=== PATIENT | male | born 1930 | race Caucasian/White ===

== ENCOUNTER 2018-06-25 13:35 | Inpatient (IN) | payer OTHER, MEDICAID ==
[~2018-06-25] VITALS: Ht 162.6 cm; Wt 55.3 kg
[2018-06-25 20:00] VITALS: BP_SYST 119
[2018-06-25] MEDS ORDERED: AMIN30LI26 GT (20:02)
[2018-06-25] MEDS ORDERED: MEMA10TA GT (20:02)
[2018-06-25] MEDS ORDERED: DONE10TA44 GT (20:02)
[2018-06-25] MEDS ORDERED: ACET325T53 GT (20:02)
[2018-06-25] MEDS ORDERED: ASPI-1155 GT (20:02)
[2018-06-25] MEDS ORDERED: FERR140T2 GT (20:02)
[2018-06-25] MEDS ORDERED: DOCU-144 GT (20:02)
[2018-06-25] MEDS ORDERED: CRAN450C GT (20:02)
[2018-06-25] MEDS ORDERED: MULT-300 GT (20:02)
[2018-06-25] MEDS ORDERED: MOM PO (20:05)
[2018-06-25] MEDS ORDERED: MILK OF MAGNESIA 30 ML UDC PO PRN (20:15)
[2018-06-25] MEDS ORDERED: ACETAMINOPHEN 325 MG TABLET GT PRN (20:15)
[2018-06-25 20:23] VITALS: BP_SYST 119
[2018-06-25 20:26] LABS: BILIRUBIN,URINE NEGATIVE (NEGATIVE); BLOOD, URINE 3+ (NEGATIVE); CLARITY/URINE HAZY (CLEAR); COLOR,URINE YELLOW (YELLOW); GLUCOSE,URINE NEGATIVE (NEGATIVE); KETONES,URINE NEGATIVE (NEGATIVE); LEUKOCYTE ESTERASE ,URINE 3+ (NEGATIVE); NITRITE, URINE POSITIVE (NEGATIVE); PROTEIN URINE TRACE (NEGATIVE)
[2018-06-25 20:30] LABS: BASOPHILS % (AUTO) 0.3 % (0.0-2.0); EOSINOPHILS # (AUTO) 0.4 K/uL (0.0-0.4); EOSINOPHILS % (AUTO) 4.5 % (0.0-4.0); HEMATOCRIT 37.3 % (36-54); HEMOGLOBIN 12.2 g/dL (14.0-18.0); LYMPHOCYTES % (AUTO) 12.4 % (20.5-51.5); MEAN CORPUSCULAR HEMOGLOBIN 29 pg (27-31); MEAN CORPUSCULAR HGB CONC 33 % (32-36); MEAN CORPUSCULAR VOLUME 89 fL (79.0-98.0); MONOCYTES # (AUTO) 0.5 K/uL (0.0-1.0); MONOCYTES % (AUTO) 6.2 % (1.7-9.3); NEUTROPHILS # (AUTO) 6.4 K/uL (1.8-7.7); NEUTROPHILS % (AUTO) 76.6 % (40.0-70.0); PLATELET COUNT (AUTO) 262 K/uL (130-430); RED BLOOD CELL COUNT(AUTO) 4.17 MIL/uL (4.2-6.2); RED CELL DISTRIBUTION WIDTH 13.4 % (9.0-15.0); WHITE BLOOD COUNT (AUTO) 8.3 K/uL (4.8-10.8)
[2018-06-25 20:36] LABS: BACTERIA,URINE MANY /HPF (None Seen); MUCUS,URINE None Seen /LPF (None Seen); WBC,URINE 80-100 /HPF (0-3)
[2018-06-25 20:38] LABS: ALANINE AMINOTRANSFERASE 23 U/L (12-78); ALBUMIN 2.8 g/dL (3.4-4.8); ANION GAP 4 (5-15); ASPARTATE AMINOTRANSFERASE 25 U/L (10-37); CALCIUM 8.5 mg/dL (8.4-11.0); CHLORIDE 105 mmol/L (98-107); CREATININE 0.88 mg/dL (0.55-1.30); GLUCOSE 79 mg/dL (70-99); POTASSIUM 3.7 mmol/L (3.5-5.1); SODIUM SERUM 136 mmol/L (136-145); TOTAL BILIRUBIN 0.7 mg/dL (0.0-1.0); UREA NITROGEN, BLOOD 36 mg/dL (8-21)
[2018-06-25] MEDS ORDERED: metroNIDAZOLE 500 mg/NS 200 ML IV ONE (21:48)
[2018-06-25] MEDS ORDERED: ENOXAPARIN SODIUM 30 MG/0.3 ML SYRINGE SUBCUT SCH (22:00)
[2018-06-25] MEDS: MEMANTINE HCL 5 MG TABLET GT SCH (22:07)
[2018-06-25] MEDS: KCL 20 mEq in D5/0.45NS 1000mL 1,000 ML IV SCH (22:07)
[2018-06-25] MEDS: DOCUSATE SODIUM 100 MG CAPSULE PO SCH (22:07)
[2018-06-25] MEDS: DONEPEZIL HCL 5 MG TABLET (ARICEPT) GT SCH (22:07)
[2018-06-25] MEDS: metroNIDAZOLE 500 mg/NS 100 ML IV SCH (22:10)
[2018-06-25] MEDS ORDERED: CEFEPIME 1 GM in D5W 50 ML IV SCH (22:30)
[2018-06-25] MEDS ORDERED: CEFEPIME 1 GM/VIAL (MAXIPIME) ONE (23:49)
[2018-06-26 00:06] VITALS: BP_SYST 119
[2018-06-26] MEDS: metroNIDAZOLE 500 mg/NS 100 ML IV SCH ×3 (06:10→21:17)
[2018-06-26] MEDS: ASPIRIN 81 MG TAB.CHEW GT SCH (08:15)
[2018-06-26] MEDS: MEMANTINE HCL 5 MG TABLET GT SCH ×2 (08:15→20:57)
[2018-06-26] MEDS: ONDANSETRON HCL 4 MG/2 ML VIAL IVP PRN ×3 (08:15→19:56)
[2018-06-26] MEDS: DOCUSATE SODIUM 100 MG CAPSULE PO SCH (08:15)
[2018-06-26] MEDS ORDERED: DOCUSATE SODIUM 100 MG/10 ML UDC PO SCH ×2 (08:33→09:00)
[2018-06-26 08:35] VITALS: BP_SYST 132
[2018-06-26] MEDS ORDERED: MILK OF MAGNESIA 30 ML UDC GT PRN (08:35)
[2018-06-26] MEDS: DOCUSATE SODIUM 100 MG/10 ML UDC GT SCH ×2 (08:43→20:58)
[2018-06-26] MEDS ORDERED: FERROUS SULFATE 325 MG TABLET.DR GT SCH (09:00)
[2018-06-26] MEDS ORDERED: FERROUS SULFATE 325 MG TABLET.DR PO SCH (09:00)
[2018-06-26] MEDS: KCL 20 mEq in D5/0.45NS 1000mL 1,000 ML IV SCH ×2 (09:20→13:36)
[2018-06-26 11:22] VITALS: BP_SYST 133
[2018-06-26] MEDS: CEFEPIME 1 GM in D5W 50 ML IV SCH (11:37)
[2018-06-26 15:27] VITALS: BP_SYST 135
[2018-06-26] MEDS ORDERED: METOCLOPRAMIDE HCL 10 MG/2 ML VIAL IVP PRN (17:30)
[2018-06-26] MEDS ORDERED: BISACODYL 10 MG/SUPPOSITORY RC ONE (17:30)
[2018-06-26 20:00] VITALS: BP_SYST 124
[2018-06-26] MEDS: DONEPEZIL HCL 5 MG TABLET (ARICEPT) GT SCH (20:57)
[2018-06-26] MEDS: PANTOPRAZOLE SODIUM 40 MG/VIAL (PROTONIX) IVP SCH (20:58)
[2018-06-26] MEDS: ENOXAPARIN SODIUM 30 MG/0.3 ML SYRINGE SUBCUT SCH (21:12)
[2018-06-27 00:07] VITALS: BP_SYST 111
[2018-06-27] MEDS: CEFEPIME 1 GM in D5W 50 ML IV SCH ×2 (00:12→12:48)
[2018-06-27 05:47] VITALS: BP_SYST 111
[2018-06-27] MEDS: metroNIDAZOLE 500 mg/NS 100 ML IV SCH ×3 (06:25→21:01)
[2018-06-27] MEDS: KCL 20 mEq in D5/0.45NS 1000mL 1,000 ML IV SCH (06:26)
[2018-06-27] MEDS ORDERED: METOCLOPRAMIDE HCL 10 MG/2 ML VIAL IVP ONE (07:15)
[2018-06-27 07:21] LABS: ALANINE AMINOTRANSFERASE 18 U/L (12-78); ALBUMIN 2.5 g/dL (3.4-4.8); ANION GAP 7 (5-15); ASPARTATE AMINOTRANSFERASE 21 U/L (10-37); CALCIUM 8.1 mg/dL (8.4-11.0); CHLORIDE 104 mmol/L (98-107); CREATININE 0.86 mg/dL (0.55-1.30); GLUCOSE 99 mg/dL (70-99); POTASSIUM 3.5 mmol/L (3.5-5.1); SODIUM SERUM 135 mmol/L (136-145); TOTAL BILIRUBIN 0.7 mg/dL (0.0-1.0); UREA NITROGEN, BLOOD 24 mg/dL (8-21)
[2018-06-27 07:27] LABS: BASOPHILS % (AUTO) 0.2 % (0.0-2.0); EOSINOPHILS # (AUTO) 0.1 K/uL (0.0-0.4); EOSINOPHILS % (AUTO) 1.7 % (0.0-4.0); HEMATOCRIT 32.4 % (36-54); HEMOGLOBIN 10.7 g/dL (14.0-18.0); LYMPHOCYTES # (AUTO) 0.6 K/uL (1.0-5.5); MEAN CORPUSCULAR HEMOGLOBIN 30 pg (27-31); MEAN CORPUSCULAR HGB CONC 33 % (32-36); MEAN CORPUSCULAR VOLUME 90 fL (79.0-98.0); MONOCYTES # (AUTO) 0.5 K/uL (0.0-1.0); MONOCYTES % (AUTO) 5.7 % (1.7-9.3); NEUTROPHILS # (AUTO) 7.6 K/uL (1.8-7.7); NEUTROPHILS % (AUTO) 85.4 % (40.0-70.0); PLATELET COUNT (AUTO) 231 K/uL (130-430); RED BLOOD CELL COUNT(AUTO) 3.62 MIL/uL (4.2-6.2); RED CELL DISTRIBUTION WIDTH 13.3 % (9.0-15.0); WHITE BLOOD COUNT (AUTO) 8.8 K/uL (4.8-10.8)
[2018-06-27] MEDS ORDERED: GASTROGRAFIN 120 ML ONE (07:28)
[2018-06-27] MEDS ORDERED: MINERAL OIL 133 ML ENEMA RC ONE (08:00)
[2018-06-27 08:07] VITALS: BP_SYST 113
[2018-06-27 08:11] LABS: LIPASE 39091 U/L (73-393)
[2018-06-27 08:16] LABS: AMYLASE 3447 U/L (0-100)
[2018-06-27] MEDS: MINERAL OIL 30 ML UDC PO SCH (08:25)
[2018-06-27] MEDS: DOCUSATE SODIUM 100 MG/10 ML UDC GT SCH ×2 (08:25→20:58)
[2018-06-27] MEDS: MEMANTINE HCL 5 MG TABLET GT SCH ×2 (08:25→20:58)
[2018-06-27] MEDS: ASPIRIN 81 MG TAB.CHEW GT SCH (08:25)
[2018-06-27] MEDS: PANTOPRAZOLE SODIUM 40 MG/VIAL (PROTONIX) IVP SCH ×2 (08:38→20:59)
[2018-06-27] MEDS: LR 1,000 ML IV SCH ×2 (10:12→20:03)
[2018-06-27 11:35] VITALS: BP_SYST 113
[2018-06-27] MEDS: METOCLOPRAMIDE HCL 10 MG/2 ML VIAL IVP SCH ×2 (14:12→21:58)
[2018-06-27] MEDS ORDERED: MORPHINE 4 MG/ML INJ. SYRINGE IVP PRN (15:30)
[2018-06-27 15:52] VITALS: BP_SYST 104
[2018-06-27 20:00] VITALS: BP_SYST 118
[2018-06-27] MEDS: DONEPEZIL HCL 5 MG TABLET (ARICEPT) GT SCH (20:58)
[2018-06-27] MEDS: ENOXAPARIN SODIUM 30 MG/0.3 ML SYRINGE SUBCUT SCH (21:02)
[2018-06-28] MEDS: CEFEPIME 1 GM in D5W 50 ML IV SCH ×2 (00:18→12:15)
[2018-06-28 01:15] VITALS: BP_SYST 102
[2018-06-28] MEDS: LR 1,000 ML IV SCH ×3 (05:05→22:16)
[2018-06-28] MEDS: metroNIDAZOLE 500 mg/NS 100 ML IV SCH ×3 (05:07→21:59)
[2018-06-28] MEDS: METOCLOPRAMIDE HCL 10 MG/2 ML VIAL IVP SCH ×3 (06:35→21:45)
[2018-06-28 06:48] LABS: BASOPHILS % (AUTO) 0.3 % (0.0-2.0); EOSINOPHILS # (AUTO) 0.2 K/uL (0.0-0.4); EOSINOPHILS % (AUTO) 2.5 % (0.0-4.0); HEMATOCRIT 33.5 % (36-54); LYMPHOCYTES # (AUTO) 0.9 K/uL (1.0-5.5); LYMPHOCYTES % (AUTO) 10.6 % (20.5-51.5); MEAN CORPUSCULAR HEMOGLOBIN 29 pg (27-31); MEAN CORPUSCULAR HGB CONC 33 % (32-36); MEAN CORPUSCULAR VOLUME 89 fL (79.0-98.0); MONOCYTES # (AUTO) 0.7 K/uL (0.0-1.0); NEUTROPHILS # (AUTO) 6.4 K/uL (1.8-7.7); NEUTROPHILS % (AUTO) 78.6 % (40.0-70.0); PLATELET COUNT (AUTO) 222 K/uL (130-430); RED BLOOD CELL COUNT(AUTO) 3.78 MIL/uL (4.2-6.2); RED CELL DISTRIBUTION WIDTH 13.3 % (9.0-15.0); WHITE BLOOD COUNT (AUTO) 8.2 K/uL (4.8-10.8)
[2018-06-28 07:03] LABS: ANION GAP 11 (5-15); CALCIUM 8.4 mg/dL (8.4-11.0); CHLORIDE 107 mmol/L (98-107); CREATININE 0.74 mg/dL (0.55-1.30); GLUCOSE 53 mg/dL (70-99); POTASSIUM 3.4 mmol/L (3.5-5.1); SODIUM SERUM 141 mmol/L (136-145); UREA NITROGEN, BLOOD 20 mg/dL (8-21)
[2018-06-28 07:12] LABS: ALANINE AMINOTRANSFERASE 14 U/L (12-78); ALBUMIN 2.3 g/dL (3.4-4.8); ASPARTATE AMINOTRANSFERASE 21 U/L (10-37); TOTAL BILIRUBIN 0.7 mg/dL (0.0-1.0)
[2018-06-28 07:58] LABS: AMYLASE 1498 U/L (0-100)
[2018-06-28 08:00] LABS: LIPASE 16085 U/L (73-393)
[2018-06-28 08:04] VITALS: BP_SYST 121
[2018-06-28] MEDS: DOCUSATE SODIUM 100 MG/10 ML UDC GT SCH ×2 (09:04→21:44)
[2018-06-28] MEDS: ASPIRIN 81 MG TAB.CHEW GT SCH (09:05)
[2018-06-28] MEDS: PANTOPRAZOLE SODIUM 40 MG/VIAL (PROTONIX) IVP SCH ×2 (09:05→21:45)
[2018-06-28] MEDS: MINERAL OIL 30 ML UDC PO SCH (09:05)
[2018-06-28] MEDS: MEMANTINE HCL 5 MG TABLET GT SCH ×2 (09:05→21:44)
[2018-06-28] MEDS: POLYETHYLENE GLYCOL 3350, 17 GM/ POWD.PACK PO SCH (09:06)
[2018-06-28] MEDS: MUPIROCIN NASAL 2% OINT. NS SCH ×2 (09:06→21:46)
[2018-06-28] MEDS ORDERED: DIATR MEGLU/DIATRIZ SOD 30 ML SOLUTION PO ONE (11:34)
[2018-06-28 13:03] VITALS: BP_SYST 117
[2018-06-28 14:28] VITALS: BP_SYST 118
[2018-06-28 20:00] VITALS: BP_SYST 114
[2018-06-28] MEDS: DONEPEZIL HCL 5 MG TABLET (ARICEPT) GT SCH (21:44)
[2018-06-28] MEDS: ENOXAPARIN SODIUM 30 MG/0.3 ML SYRINGE SUBCUT SCH (21:54)
[2018-06-29] MEDS: CEFEPIME 1 GM in D5W 50 ML IV SCH ×2 (00:08→12:03)
[2018-06-29 00:19] VITALS: BP_SYST 118
[2018-06-29] MEDS: LR 1,000 ML IV SCH ×2 (01:15→09:57)
[2018-06-29] MEDS: METOCLOPRAMIDE HCL 10 MG/2 ML VIAL IVP SCH ×3 (05:30→21:51)
[2018-06-29] MEDS: metroNIDAZOLE 500 mg/NS 100 ML IV SCH ×3 (05:30→21:51)
[2018-06-29 08:10] VITALS: BP_SYST 118
[2018-06-29] MEDS: PANTOPRAZOLE SODIUM 40 MG/VIAL (PROTONIX) IVP SCH ×2 (09:55→21:48)
[2018-06-29] MEDS: MUPIROCIN NASAL 2% OINT. NS SCH ×2 (09:58→22:04)
[2018-06-29] MEDS: MINERAL OIL 30 ML UDC PO SCH (10:07)
[2018-06-29] MEDS: DOCUSATE SODIUM 100 MG/10 ML UDC GT SCH ×2 (10:07→21:48)
[2018-06-29] MEDS: POLYETHYLENE GLYCOL 3350, 17 GM/ POWD.PACK PO SCH (10:08)
[2018-06-29] MEDS: ASPIRIN 81 MG TAB.CHEW GT SCH (10:08)
[2018-06-29] MEDS: MEMANTINE HCL 5 MG TABLET GT SCH ×2 (10:08→21:48)
[2018-06-29 11:34] VITALS: BP_SYST 139
[2018-06-29] MEDS ORDERED: VANCOMYCIN HCL 1 GM/NS PREMIX 250 ML IV ONE (14:15)
[2018-06-29] MEDS ORDERED: DIATR MEGLU/DIATRIZ SOD 30 ML SOLUTION PO ONE (14:58)
[2018-06-29 15:32] VITALS: BP_SYST 106
[2018-06-29 18:23] LABS: BASOPHILS % (AUTO) 0.4 % (0.0-2.0); EOSINOPHILS # (AUTO) 0.3 K/uL (0.0-0.4); HEMATOCRIT 33.1 % (36-54); HEMOGLOBIN 10.7 g/dL (14.0-18.0); LYMPHOCYTES # (AUTO) 0.8 K/uL (1.0-5.5); LYMPHOCYTES % (AUTO) 10.2 % (20.5-51.5); MEAN CORPUSCULAR HEMOGLOBIN 29 pg (27-31); MEAN CORPUSCULAR HGB CONC 33 % (32-36); MEAN CORPUSCULAR VOLUME 90 fL (79.0-98.0); MONOCYTES # (AUTO) 0.6 K/uL (0.0-1.0); MONOCYTES % (AUTO) 7.3 % (1.7-9.3); NEUTROPHILS % (AUTO) 78.1 % (40.0-70.0); PLATELET COUNT (AUTO) 236 K/uL (130-430); RED CELL DISTRIBUTION WIDTH 13.7 % (9.0-15.0); WHITE BLOOD COUNT (AUTO) 7.7 K/uL (4.8-10.8)
[2018-06-29 18:40] LABS: ALANINE AMINOTRANSFERASE 16 U/L (12-78); ALBUMIN 2.1 g/dL (3.4-4.8); AMYLASE 494 U/L (0-100); ANION GAP 11 (5-15); ASPARTATE AMINOTRANSFERASE 24 U/L (10-37); CALCIUM 7.9 mg/dL (8.4-11.0); CHLORIDE 104 mmol/L (98-107); CREATININE 0.69 mg/dL (0.55-1.30); GLUCOSE 50 mg/dL (70-99); LIPASE 2475 U/L (73-393); POTASSIUM 3.1 mmol/L (3.5-5.1); SODIUM SERUM 133 mmol/L (136-145); TOTAL BILIRUBIN 0.8 mg/dL (0.0-1.0); UREA NITROGEN, BLOOD 17 mg/dL (8-21)
[2018-06-29 19:45] VITALS: BP_SYST 131
[2018-06-29] MEDS ORDERED: POTASSIUM CHLORIDE 20 MEQ/PKT PACKET PO SCH (20:30)
[2018-06-29] MEDS ORDERED: KCL 40 mEq in 100 mL (PREMIX) 100 ML IV SCH (21:00)
[2018-06-29] MEDS: KCL 20 mEq in D5/0.45NS 1000mL 1,000 ML IV SCH (21:44)
[2018-06-29] MEDS: DONEPEZIL HCL 5 MG TABLET (ARICEPT) GT SCH (21:47)
[2018-06-29] MEDS: ENOXAPARIN SODIUM 30 MG/0.3 ML SYRINGE SUBCUT SCH (22:01)
[2018-06-29 23:34] VITALS: BP_SYST 102
[2018-06-30] MEDS: metroNIDAZOLE 500 mg/NS 100 ML IV SCH ×3 (05:22→21:39)
[2018-06-30] MEDS: METOCLOPRAMIDE HCL 10 MG/2 ML VIAL IVP SCH ×3 (05:22→21:38)
[2018-06-30] MEDS: POLYETHYLENE GLYCOL 3350, 17 GM/ POWD.PACK PO SCH (09:40)
[2018-06-30] MEDS: MINERAL OIL 30 ML UDC PO SCH (09:40)
[2018-06-30] MEDS: MEMANTINE HCL 5 MG TABLET GT SCH ×2 (09:40→21:36)
[2018-06-30] MEDS: DOCUSATE SODIUM 100 MG/10 ML UDC GT SCH ×2 (09:40→21:36)
[2018-06-30] MEDS: PANTOPRAZOLE SODIUM 40 MG/VIAL (PROTONIX) IVP SCH ×2 (09:40→21:36)
[2018-06-30] MEDS: ASPIRIN 81 MG TAB.CHEW GT SCH (09:41)
[2018-06-30] MEDS: MUPIROCIN NASAL 2% OINT. NS SCH ×2 (09:50→21:37)
[2018-06-30] MEDS: KCL 20 mEq in D5/0.45NS 1000mL 1,000 ML IV SCH (09:56)
[2018-06-30 11:29] VITALS: BP_SYST 129
[2018-06-30 15:27] VITALS: BP_SYST 122
[2018-06-30 19:00] VITALS: BP_SYST 109
[2018-06-30 20:00] VITALS: BP_SYST 109
[2018-06-30] MEDS: DONEPEZIL HCL 5 MG TABLET (ARICEPT) GT SCH (21:36)
[2018-06-30] MEDS: ENOXAPARIN SODIUM 30 MG/0.3 ML SYRINGE SUBCUT SCH (21:48)
[2018-07-01 00:55] VITALS: BP_SYST 150
[2018-07-01] MEDS: KCL 20 mEq in D5/0.45NS 1000mL 1,000 ML IV SCH ×2 (05:27)
[2018-07-01] MEDS: metroNIDAZOLE 500 mg/NS 100 ML IV SCH ×2 (05:27→15:04)
[2018-07-01] MEDS: METOCLOPRAMIDE HCL 10 MG/2 ML VIAL IVP SCH (05:28)
[2018-07-01 07:19] LABS: ANION GAP 8 (5-15); CALCIUM 7.5 mg/dL (8.4-11.0); CHLORIDE 104 mmol/L (98-107); CREATININE 0.76 mg/dL (0.55-1.30); GLUCOSE 182 mg/dL (70-99); SODIUM SERUM 136 mmol/L (136-145); UREA NITROGEN, BLOOD 14 mg/dL (8-21)
[2018-07-01 07:26] LABS: EOSINOPHILS # (AUTO) 0.5 K/uL (0.0-0.4); LYMPHOCYTES # (AUTO) 0.7 K/uL (1.0-5.5); MEAN CORPUSCULAR HEMOGLOBIN 30 pg (27-31); MEAN CORPUSCULAR VOLUME 89 fL (79.0-98.0)
[2018-07-01 07:27] LABS: AMYLASE 219 U/L (0-100)
[2018-07-01 07:34] VITALS: BP_SYST 115
[2018-07-01 07:54] LABS: LIPASE 3233 U/L (73-393)
[2018-07-01 08:13] LABS: HEMATOCRIT 29.9 % (36-54); MEAN CORPUSCULAR HGB CONC 34 % (32-36); NEUTROPHILS % (AUTO) 65.5 % (40.0-70.0); PLATELET COUNT (AUTO) 245 K/uL (130-430); RED BLOOD CELL COUNT(AUTO) 3.34 MIL/uL (4.2-6.2); RED CELL DISTRIBUTION WIDTH 14.3 % (9.0-15.0); WHITE BLOOD COUNT (AUTO) 4.9 K/uL (4.8-10.8)
[2018-07-01 08:14] LABS: BASOPHILS % (AUTO) 0.7 % (0.0-2.0); EOSINOPHILS % (AUTO) 9.9 % (0.0-4.0); LYMPHOCYTES % (AUTO) 13.5 % (20.5-51.5); MONOCYTES # (AUTO) 0.5 K/uL (0.0-1.0); MONOCYTES % (AUTO) 10.1 % (1.7-9.3); NEUTROPHILS # (AUTO) 3.2 K/uL (1.8-7.7)
[2018-07-01] MEDS: MUPIROCIN NASAL 2% OINT. NS SCH (09:00)
[2018-07-01] MEDS: MINERAL OIL 30 ML UDC PO SCH (10:33)
[2018-07-01] MEDS: DOCUSATE SODIUM 100 MG/10 ML UDC GT SCH (10:33)
[2018-07-01] MEDS: POLYETHYLENE GLYCOL 3350, 17 GM/ POWD.PACK PO SCH (10:33)
[2018-07-01] MEDS: PANTOPRAZOLE SODIUM 40 MG/VIAL (PROTONIX) IVP SCH (10:33)
[2018-07-01] MEDS: ASPIRIN 81 MG TAB.CHEW GT SCH (10:35)
[2018-07-01] MEDS: MEMANTINE HCL 5 MG TABLET GT SCH (10:35)
[2018-07-01 12:02] VITALS: BP_SYST 117
[2018-07-01] MEDS: POTASSIUM CHLORIDE 20 MEQ/PKT PACKET PO SCH ×2 (12:34→15:04)
[2018-07-01] MEDS ORDERED: METOCLOPRAMIDE HCL 10 MG/2 ML VIAL IVP PRN (16:00)
[2018-07-01 16:02] VITALS: BP_SYST 114
[2018-07-01 17:04] VITALS: BP_SYST 136
[2018-07-01] MEDS ORDERED: METOCLOPRAMIDE HCL 10 MG/2 ML VIAL IVP ONE (18:00)
[2018-07-01 20:19] VITALS: BP_SYST 132
[2018-07-01] MEDS ORDERED: POLYETHYLENE GLYCOL 3350, 17 GM/ POWD.PACK PO SCH (21:00)
[2018-07-01] MEDS ORDERED: METOCLOPRAMIDE HCL 10 MG/2 ML VIAL IVP SCH (22:00)
== END 2018-07-01 20:30 | DRG 388 ==
LOC: EEVIPCON 19:41 → SMU 19:41 → STU 19:49
PROVIDERS: ADMIT Family Medicine; ATTEND Family Medicine
DX: K56.7 Ileus, unspecified (principal); K85.90 Acute pancreatitis without necrosis or infection, unspecified; N39.0 Urinary tract infection, site not specified; R65.10 Systemic inflammatory response syndrome (SIRS) of non-infectious origin without acute organ dysfunction; E86.0 Dehydration; D64.9 Anemia, unspecified; F03.90 Unspecified dementia, unspecified severity, without behavioral disturbance, psychotic disturbance, mood disturbance, and anxiety; Z93.1 Gastrostomy status; K80.20 Calculus of gallbladder without cholecystitis without obstruction
CPT/HCPCS: 36415; 71045; 74018; 74250-TC; 76700-TC; 80048; 80053; 81000-TC; 82150-TC; 83605; 83690-TC; 85025; 87040-TC; 87081; 87086; 87186-TC; 93005; C9113; G0378; J0692; J1650; J2270; J2405; J2765; J3370; J3480; J3490; J7060; J7120; Q9963; Q9964

== ENCOUNTER 2018-07-28 13:24 | Inpatient (IN) | payer OTHER, MEDICAID ==
[~2018-07-28] VITALS: Ht 172.7 cm; Wt 54.0 kg
[~2018-07-28 13:24] MED LIST: ACET325T53 GT; AMIN30LI26 GT; ASPI-1155 GT; CRAN450C GT; DOCU-144 GT; DONE10TA44 GT; FERR140T2 GT; MEMA10TA GT; MOM PO; MULT-300 GT
[2018-07-28 13:30] VITALS: BP_SYST 117
[2018-07-28] MEDS ORDERED: DONE10TA44 GT (13:47)
[2018-07-28] MEDS ORDERED: ACET-2165 GT (13:47)
[2018-07-28] MEDS ORDERED: MEMA10TA GT (13:47)
[2018-07-28] MEDS ORDERED: CRAN450C GT (13:47)
[2018-07-28] MEDS ORDERED: METO-290 GT (13:47)
[2018-07-28] MEDS ORDERED: MOM GT (13:47)
[2018-07-28] MEDS ORDERED: DOCU-144 GT (13:47)
[2018-07-28] MEDS ORDERED: PEDI1TAB28 GT (13:47)
[2018-07-28] MEDS ORDERED: FER300L GT (13:47)
[2018-07-28] MEDS ORDERED: ASPI-1153 GT (13:47)
[2018-07-28 14:52] LABS: ANION GAP 8 (5-15); BASOPHILS # (AUTO) 0.3 K/uL (0.0-0.2); BASOPHILS % (AUTO) 0.5 % (0.0-2.0); CALCIUM 7.3 mg/dL (8.4-11.0); CHLORIDE 110 mmol/L (98-107); CREATININE 0.69 mg/dL (0.55-1.30); EOSINOPHILS # (AUTO) 0.3 K/uL (0.0-0.4); EOSINOPHILS % (AUTO) 4.8 % (0.0-4.0); GLUCOSE 73 mg/dL (70-99); HEMATOCRIT 31.1 % (36-54); HEMOGLOBIN 10.1 g/dL (14.0-18.0); LYMPHOCYTES # (AUTO) 0.6 K/uL (1.0-5.5); LYMPHOCYTES % (AUTO) 9.2 % (20.5-51.5); MEAN CORPUSCULAR HEMOGLOBIN 29 pg (27-31); MEAN CORPUSCULAR HGB CONC 33 % (32-36); MEAN CORPUSCULAR VOLUME 89 fL (79.0-98.0); MONOCYTES # (AUTO) 0.4 K/uL (0.0-1.0); MONOCYTES % (AUTO) 6.3 % (1.7-9.3); NEUTROPHILS # (AUTO) 5.2 K/uL (1.8-7.7); NEUTROPHILS % (AUTO) 79.2 % (40.0-70.0); PLATELET COUNT (AUTO) 274 K/uL (130-430); RED BLOOD CELL COUNT(AUTO) 3.48 MIL/uL (4.2-6.2); RED CELL DISTRIBUTION WIDTH 14.6 % (9.0-15.0); SODIUM SERUM 142 mmol/L (136-145); UREA NITROGEN, BLOOD 18 mg/dL (8-21); WHITE BLOOD COUNT (AUTO) 6.6 K/uL (4.8-10.8)
[2018-07-28 14:55] LABS: BILIRUBIN,URINE NEGATIVE (NEGATIVE); BLOOD, URINE 3+ (NEGATIVE); CLARITY/URINE HAZY (CLEAR); COLOR,URINE YELLOW (YELLOW); GLUCOSE,URINE NEGATIVE (NEGATIVE); KETONES,URINE NEGATIVE (NEGATIVE); LEUKOCYTE ESTERASE ,URINE NEGATIVE (NEGATIVE); NITRITE, URINE NEGATIVE (NEGATIVE); PROTEIN URINE 1+ (NEGATIVE)
[2018-07-28 14:56] LABS: POTASSIUM 2.6 mmol/L (3.5-5.1)
[2018-07-28] MEDS ORDERED: KCL 20 mEq in 100 mL (PREMIX) 100 ML IV ONE (15:00)
[2018-07-28 15:08] LABS: TOTAL BILIRUBIN 0.7 mg/dL (0.0-1.0)
[2018-07-28 15:10] LABS: ALANINE AMINOTRANSFERASE 25 U/L (12-78); ALBUMIN 2.1 g/dL (3.4-4.8); ASPARTATE AMINOTRANSFERASE 31 U/L (10-37); LIPASE 228 U/L (73-393)
[2018-07-28] MEDS ORDERED: NACL 0.9% 1,000 ML IV ONE (15:15)
[2018-07-28 15:23] LABS: INR 1.2 (0.80-1.20); PROTHROMBIN TIME 11.7 SECS (9.5-12.5)
[2018-07-28 15:27] LABS: RBC,URINE >100 /HPF (0-3)
[2018-07-28 15:28] LABS: BACTERIA,URINE FEW /HPF (None Seen)
[2018-07-28 15:29] LABS: HYALINE CASTS, URINE 0-10 /LPF (None Seen); MUCUS,URINE 2+ /LPF (None Seen)
[2018-07-28] MEDS ORDERED: ONDANSETRON HCL 4 MG/2 ML VIAL IVP PRN (15:30)
[2018-07-28 16:07] VITALS: BP_SYST 130
[2018-07-28 16:23] VITALS: BP_SYST 130
[2018-07-28] MEDS: KCL 20 mEq in D5/0.45NS 1000mL 1,000 ML IV SCH (18:03)
[2018-07-28 20:00] VITALS: BP_SYST 116
[2018-07-28] MEDS: metroNIDAZOLE 500 mg/NS 100 ML IV SCH (21:15)
[2018-07-28] MEDS: MEMANTINE HCL 5 MG TABLET GT SCH (21:16)
[2018-07-28] MEDS: DONEPEZIL HCL 5 MG TABLET (ARICEPT) GT SCH (21:16)
[2018-07-28] MEDS: PANTOPRAZOLE SODIUM 40 MG/VIAL (PROTONIX) IVP SCH (21:16)
[2018-07-28] MEDS: OLANZapine 2.5 MG TABLET GT SCH (21:16)
[2018-07-28] MEDS ORDERED: HALOPERIDOL LACTATE 5 MG/ML VIAL IM ONE (23:20)
[2018-07-29 00:23] VITALS: BP_SYST 114
[2018-07-29] MEDS: ACETAMINOPHEN 325 MG TABLET GT SCH ×2 (00:34→23:56)
[2018-07-29] MEDS: metroNIDAZOLE 500 mg/NS 100 ML IV SCH ×3 (05:46→22:58)
[2018-07-29] MEDS: KCL 20 mEq in D5/0.45NS 1000mL 1,000 ML IV SCH ×2 (05:47→22:58)
[2018-07-29 06:07] LABS: ANION GAP 9 (5-15); CALCIUM 7.7 mg/dL (8.4-11.0); CHLORIDE 108 mmol/L (98-107); CREATININE 0.88 mg/dL (0.55-1.30); GLUCOSE 92 mg/dL (70-99); SODIUM SERUM 140 mmol/L (136-145); UREA NITROGEN, BLOOD 12 mg/dL (8-21)
[2018-07-29 06:17] LABS: PHOSPHORUS 1.9 mg/dL (2.7-4.5)
[2018-07-29 06:49] LABS: POTASSIUM 2.9 mmol/L (3.5-5.1)
[2018-07-29 07:41] LABS: HEMATOCRIT 29.9 % (36-54); HEMOGLOBIN 9.6 g/dL (14.0-18.0); MEAN CORPUSCULAR HEMOGLOBIN 29 pg (27-31); MEAN CORPUSCULAR HGB CONC 32 % (32-36); MEAN CORPUSCULAR VOLUME 90 fL (79.0-98.0); NEUTROPHILS % (AUTO) 60.1 % (40.0-70.0); PLATELET COUNT (AUTO) 234 K/uL (130-430); RED BLOOD CELL COUNT(AUTO) 3.33 MIL/uL (4.2-6.2); RED CELL DISTRIBUTION WIDTH 14.7 % (9.0-15.0); WHITE BLOOD COUNT (AUTO) 3.4 K/uL (4.8-10.8)
[2018-07-29 07:42] LABS: BASOPHILS % (AUTO) 0.7 % (0.0-2.0); EOSINOPHILS # (AUTO) 0.3 K/uL (0.0-0.4); EOSINOPHILS % (AUTO) 8.6 % (0.0-4.0); LYMPHOCYTES # (AUTO) 0.7 K/uL (1.0-5.5); LYMPHOCYTES % (AUTO) 19.4 % (20.5-51.5); MONOCYTES # (AUTO) 0.4 K/uL (0.0-1.0); MONOCYTES % (AUTO) 11.2 % (1.7-9.3); NEUTROPHILS # (AUTO) 2.1 K/uL (1.8-7.7)
[2018-07-29 07:56] VITALS: BP_SYST 123
[2018-07-29] MEDS ORDERED: POTASSIUM CHLORIDE 40 MEQ in NS 250 ML IV ONE (09:15)
[2018-07-29] MEDS ORDERED: POTASSIUM CHLORIDE 20 MEQ/PKT PACKET GT ONE (09:15)
[2018-07-29] MEDS: PANTOPRAZOLE SODIUM 40 MG/VIAL (PROTONIX) IVP SCH ×2 (09:41→22:57)
[2018-07-29] MEDS: MEMANTINE HCL 5 MG TABLET GT SCH ×2 (09:41→22:57)
[2018-07-29] MEDS: DOCUSATE SODIUM 100 MG/10 ML UDC GT SCH (09:41)
[2018-07-29] MEDS: OLANZapine 2.5 MG TABLET GT SCH ×2 (09:41→22:57)
[2018-07-29] MEDS: ASPIRIN 81 MG TAB.CHEW GT SCH (09:41)
[2018-07-29] MEDS: ENOXAPARIN SODIUM 40 MG/0.4 ML SYRINGE SUBCUT SCH (09:42)
[2018-07-29 12:38] VITALS: BP_SYST 128
[2018-07-29 16:15] VITALS: BP_SYST 139
[2018-07-29 20:00] VITALS: BP_SYST 116
[2018-07-29] MEDS: NAPH,MB-DB/K PH,MBDB 250 MG TAB GT SCH ×2 (22:57→22:59)
[2018-07-29] MEDS: DONEPEZIL HCL 5 MG TABLET (ARICEPT) GT SCH (22:57)
[2018-07-29 23:56] VITALS: BP_SYST 126
[2018-07-30] MEDS: metroNIDAZOLE 500 mg/NS 100 ML IV SCH ×3 (05:31→22:27)
[2018-07-30 07:20] LABS: ANION GAP 6 (5-15); CALCIUM 7.6 mg/dL (8.4-11.0); CHLORIDE 108 mmol/L (98-107); CREATININE 0.74 mg/dL (0.55-1.30); GLUCOSE 97 mg/dL (70-99); POTASSIUM 4.1 mmol/L (3.5-5.1); SODIUM SERUM 135 mmol/L (136-145); UREA NITROGEN, BLOOD 9 mg/dL (8-21)
[2018-07-30 07:27] LABS: EOSINOPHILS % (AUTO) 7.7 % (0.0-4.0); HEMATOCRIT 29.5 % (36-54); HEMOGLOBIN 9.8 g/dL (14.0-18.0); LYMPHOCYTES % (AUTO) 18.2 % (20.5-51.5); MEAN CORPUSCULAR HEMOGLOBIN 30 pg (27-31); MEAN CORPUSCULAR HGB CONC 33 % (32-36); MEAN CORPUSCULAR VOLUME 89 fL (79.0-98.0); MONOCYTES % (AUTO) 12.3 % (1.7-9.3); NEUTROPHILS % (AUTO) 60.8 % (40.0-70.0); PLATELET COUNT (AUTO) 238 K/uL (130-430); RED CELL DISTRIBUTION WIDTH 14.6 % (9.0-15.0); WHITE BLOOD COUNT (AUTO) 3.8 K/uL (4.8-10.8)
[2018-07-30 07:28] LABS: BASOPHILS # (AUTO) 0.1 K/uL (0.0-0.2); EOSINOPHILS # (AUTO) 0.3 K/uL (0.0-0.4); LYMPHOCYTES # (AUTO) 0.7 K/uL (1.0-5.5); MONOCYTES # (AUTO) 0.5 K/uL (0.0-1.0); NEUTROPHILS # (AUTO) 2.3 K/uL (1.8-7.7)
[2018-07-30] MEDS: ASPIRIN 81 MG TAB.CHEW GT SCH (08:14)
[2018-07-30] MEDS: PANTOPRAZOLE SODIUM 40 MG/VIAL (PROTONIX) IVP SCH ×2 (08:14→20:01)
[2018-07-30] MEDS: MEMANTINE HCL 5 MG TABLET GT SCH ×2 (08:14→20:01)
[2018-07-30] MEDS: DOCUSATE SODIUM 100 MG/10 ML UDC GT SCH (08:14)
[2018-07-30] MEDS: OLANZapine 2.5 MG TABLET GT SCH (08:15)
[2018-07-30] MEDS: NAPH,MB-DB/K PH,MBDB 250 MG TAB GT SCH ×4 (08:15→20:01)
[2018-07-30] MEDS: ENOXAPARIN SODIUM 40 MG/0.4 ML SYRINGE SUBCUT SCH (08:16)
[2018-07-30] MEDS: KCL 20 mEq in D5/0.45NS 1000mL 1,000 ML IV SCH ×2 (08:20→22:27)
[2018-07-30] MEDS ORDERED: GASTROGRAFIN 120 ML ONE ×2 (09:41→13:19)
[2018-07-30 13:11] VITALS: BP_SYST 113
[2018-07-30] MEDS ORDERED: HALOPERIDOL 1 MG TABLET (HALDOL) PO ONE (16:00)
[2018-07-30] MEDS ORDERED: HALOPERIDOL LACTATE 5 MG/ML VIAL IM ONE (16:30)
[2018-07-30 16:50] VITALS: BP_SYST 121
[2018-07-30] MEDS: METOCLOPRAMIDE HCL 10 MG/2 ML VIAL IVP SCH ×2 (19:30→23:07)
[2018-07-30] MEDS ORDERED: OLANZapine 5 MG TABLET PO ONE (19:30)
[2018-07-30 20:00] VITALS: BP_SYST 100
[2018-07-30] MEDS: OLANZapine 5 MG TABLET GT SCH (20:01)
[2018-07-30] MEDS: DONEPEZIL HCL 5 MG TABLET (ARICEPT) GT SCH (20:07)
[2018-07-31 00:31] VITALS: BP_SYST 140
[2018-07-31] MEDS: METOCLOPRAMIDE HCL 10 MG/2 ML VIAL IVP SCH ×3 (05:00→17:53)
[2018-07-31] MEDS: metroNIDAZOLE 500 mg/NS 100 ML IV SCH ×3 (05:00→22:09)
[2018-07-31 08:00] VITALS: BP_SYST 125
[2018-07-31] MEDS ORDERED: GASTROGRAFIN 120 ML ONE (08:25)
[2018-07-31] MEDS: DOCUSATE SODIUM 100 MG/10 ML UDC GT SCH (10:33)
[2018-07-31] MEDS: PANTOPRAZOLE SODIUM 40 MG/VIAL (PROTONIX) IVP SCH ×2 (10:33→22:09)
[2018-07-31] MEDS: MEMANTINE HCL 5 MG TABLET GT SCH ×2 (10:34→22:10)
[2018-07-31] MEDS: OLANZapine 5 MG TABLET GT SCH ×2 (10:34→22:10)
[2018-07-31] MEDS: NAPH,MB-DB/K PH,MBDB 250 MG TAB GT SCH ×4 (10:34→22:10)
[2018-07-31] MEDS: ASPIRIN 81 MG TAB.CHEW GT SCH (10:34)
[2018-07-31] MEDS: KCL 20 mEq in D5/0.45NS 1000mL 1,000 ML IV SCH (10:35)
[2018-07-31 11:54] VITALS: BP_SYST 94
[2018-07-31 15:41] VITALS: BP_SYST 104
[2018-07-31 20:03] VITALS: BP_SYST 110
[2018-07-31] MEDS: DONEPEZIL HCL 5 MG TABLET (ARICEPT) GT SCH (22:10)
[2018-08-01] MEDS: METOCLOPRAMIDE HCL 10 MG/2 ML VIAL IVP SCH ×4 (00:22→17:10)
[2018-08-01] MEDS: KCL 20 mEq in D5/0.45NS 1000mL 1,000 ML IV SCH ×2 (00:23→14:34)
[2018-08-01 01:36] VITALS: BP_SYST 100
[2018-08-01] MEDS: metroNIDAZOLE 500 mg/NS 100 ML IV SCH ×3 (05:46→20:14)
[2018-08-01 08:08] VITALS: BP_SYST 107
[2018-08-01] MEDS: OLANZapine 5 MG TABLET GT SCH ×2 (08:53→20:13)
[2018-08-01] MEDS: ASPIRIN 81 MG TAB.CHEW GT SCH (08:53)
[2018-08-01] MEDS: DOCUSATE SODIUM 100 MG/10 ML UDC GT SCH ×3 (08:53→08:58)
[2018-08-01] MEDS: PANTOPRAZOLE SODIUM 40 MG/VIAL (PROTONIX) IVP SCH ×2 (08:53→20:13)
[2018-08-01] MEDS: MEMANTINE HCL 5 MG TABLET GT SCH ×2 (08:53→20:13)
[2018-08-01] MEDS: NAPH,MB-DB/K PH,MBDB 250 MG TAB GT SCH ×4 (08:53→20:13)
[2018-08-01 11:32] VITALS: BP_SYST 96
[2018-08-01 15:12] VITALS: BP_SYST 110
[2018-08-01 19:30] VITALS: BP_SYST 105
[2018-08-01] MEDS: DONEPEZIL HCL 5 MG TABLET (ARICEPT) GT SCH (20:13)
== END 2018-08-01 21:10 | DRG 444 ==
LOC: SED 13:24 → MERGE 15:25 → STU 15:25 → SMU 15:36
PROVIDERS: ADMIT Family Medicine; ATTEND Family Medicine
DX: K80.00 Calculus of gallbladder with acute cholecystitis without obstruction (principal); G93.41 Metabolic encephalopathy; F03.90 Unspecified dementia, unspecified severity, without behavioral disturbance, psychotic disturbance, mood disturbance, and anxiety; R31.0 Gross hematuria; R33.9 Retention of urine, unspecified; F32.9 Major depressive disorder, single episode, unspecified; K57.90 Diverticulosis of intestine, part unspecified, without perforation or abscess without bleeding; E87.6 Hypokalemia; M19.90 Unspecified osteoarthritis, unspecified site; I25.2 Old myocardial infarction; Z79.899 Other long term (current) drug therapy
CPT/HCPCS: 36415; 71045; 74240-TC; 76700-TC; 78226; 80048; 80053; 81000-TC; 83605; 83690-TC; 83735-TC; 84100-TC; 84484; 85025; 85610-TC; 85730-TC; 87040-TC; 87081; 87086; 93005; 96365; 96366; 99285; A9537; C9113; J1630; J1650; J1956; J2405; J2765; J3480; J3490; J7030; J7050; Q9963

== ENCOUNTER 2018-11-26 14:05 | Inpatient (IN) | payer OTHER, MEDICAID ==
[~2018-11-26] VITALS: Ht 172.7 cm; Wt 51.3 kg
[~2018-11-26 14:05] MED LIST changes: +ACET-2165 GT; +ASPI-1153 GT; +FER300L GT; +METO-290 GT; +MOM GT; +PEDI1TAB28 GT
[2018-11-26 17:03] VITALS: BP_SYST 96
[2018-11-26] MEDS ORDERED: ONDANSETRON HCL 4 MG/2 ML VIAL ONE (17:53)
--- NOTE | 2018-11-26 18:00 | NUR ---
NAUSEA Pt c/o nausea, pt given Zofran as ordered by MD. Pt given emesis basin. Oral care provided, noted pt with greenish sputum in his mouth from oral care. Noted pt with blackened areas on teeth and very dirty tongue.
--- NOTE | 2018-11-26 19:00 | NUR ---
CLOSING NOTE Pt resting quietly in bed with no s/s resp distress, no c/o pain or discomfort, no further c/o nausea. All precautions remain in place. Call light within reach.
[2018-11-26] MEDS ORDERED: LevALBUTEROL HCL 1.25 MG/0.5 ML *CONC.* VIAL.NEB (XOPENEX CONC.) INH PRN (19:30)
--- NOTE | 2018-11-26 19:40 | NUR ---
Dr. Delvalle at nursing station. Per MD resume GT feeding Fibersource at 40ml/hr.
[2018-11-26 20:05] VITALS: BP_SYST 108
--- NOTE | 2018-11-26 20:05 | NUR ---
Opening notes Pt asleep, easily arousable, oriented x 1, VSS, afebrile. No acute distress noted. IV saline lock R. FA 22G clear, patent, secured w/ gauze. GT placement checked, small greenish residual noted 5cc. GT dressing noted w/ greenish discharge. Cleansed w/ NS and applied new dressing. Photo of GT site taken. Abdominal binder on. Bed low, locked siderailsx 3 up, bed alarm on. Call light within reach. To monitor.
[2018-11-26 20:44] LABS: BASOPHILS % (AUTO) 0.2 % (0.0-2.0); EOSINOPHILS % (AUTO) 0.1 % (0.0-4.0); HEMATOCRIT 39.3 % (36-54); HEMOGLOBIN 12.8 g/dL (14.0-18.0); LYMPHOCYTES % (AUTO) 6.1 % (20.5-51.5); MEAN CORPUSCULAR HEMOGLOBIN 28 pg (27-31); MEAN CORPUSCULAR HGB CONC 33 % (32-36); MEAN CORPUSCULAR VOLUME 87 fL (79.0-98.0); MONOCYTES # (AUTO) 0.7 K/uL (0.0-1.0); MONOCYTES % (AUTO) 4.6 % (1.7-9.3); NEUTROPHILS # (AUTO) 14.4 K/uL (1.8-7.7); PLATELET COUNT (AUTO) 557 K/uL (130-430); RED BLOOD CELL COUNT(AUTO) 4.51 MIL/uL (4.2-6.2); RED CELL DISTRIBUTION WIDTH 15.3 % (9.0-15.0); WHITE BLOOD COUNT (AUTO) 16.2 K/uL (4.8-10.8)
[2018-11-26] MEDS ORDERED: KCL 20 mEq in D5/0.45NS 1000mL 1,000 ML IV ONE (21:23)
[2018-11-26] MEDS ORDERED: CEFAZOLIN 1 GM IVPB PREMIX 100 ML IV ONE (21:23)
[2018-11-26 21:34] LABS: ALANINE AMINOTRANSFERASE 29 U/L (12-78); ALBUMIN 2.5 g/dL (3.4-4.8); ANION GAP 13 (5-15); ASPARTATE AMINOTRANSFERASE 21 U/L (10-37); CALCIUM 9.4 mg/dL (8.4-11.0); CHLORIDE 105 mmol/L (98-107); CREATININE 1.53 mg/dL (0.55-1.30); GLUCOSE 126 mg/dL (70-99); POTASSIUM 3.2 mmol/L (3.5-5.1); SODIUM SERUM 143 mmol/L (136-145); TOTAL BILIRUBIN 0.8 mg/dL (0.0-1.0); UREA NITROGEN, BLOOD 81 mg/dL (8-21)
[2018-11-26] MEDS: KCL 20 mEq in D5/0.45NS 1000mL 1,000 ML IV SCH (21:53)
[2018-11-26] MEDS: DONEPEZIL HCL 5 MG TABLET (ARICEPT) GT SCH (21:55)
[2018-11-26] MEDS: FERROUS SULFATE 300 MG/5 ML UDC GT SCH (21:55)
[2018-11-26] MEDS: MEMANTINE HCL 5 MG TABLET GT SCH (21:55)
[2018-11-26] MEDS: DOCUSATE SODIUM 100 MG CAPSULE PO SCH (21:55)
[2018-11-26] MEDS: CEFAZOLIN 1 GM IVPB PREMIX 50 ML IV SCH (22:05)
--- NOTE | 2018-11-26 22:05 | NUR ---
IV antibiotic/Photo wound Ancef IVPB administered as ordered R. FA 22 clear and patent. Wound photo of GT site taken.
--- NOTE | 2018-11-26 22:15 | NUR ---
Chest Xray at bedside.
[2018-11-27 01:00] VITALS: BP_SYST 112
--- NOTE | 2018-11-27 01:30 | NUR ---
Rounds Pt asleep, no s/s distress noted. IVF infusing at ordered rate R.FA clear and patent. Call light within reach. Bed low, locked siderails up x3, bed alarm on. To monitor.
[2018-11-27] MEDS: LevALBUTEROL HCL 1.25 MG/0.5 ML *CONC.* VIAL.NEB (XOPENEX CONC.) INH SCH ×4 (02:13→19:26)
[2018-11-27 02:39] VITALS: BP_SYST 112; BP_SYST 149
[2018-11-27] MEDS: ONDANSETRON HCL 4 MG/2 ML VIAL IVP PRN ×4 (02:52→21:14)
--- NOTE | 2018-11-27 03:00 | NUR ---
Leny Pt awake, noted small greenish emesis in bin. Medicated with Zofran 4mg IVP R. FA. HOB maintained elevated. Will continue to monitor. Addendum: 11/27/18 at 0658 by Elsy Camejo RN Oral care provided as needed. Pt tolerated well.
--- NOTE | 2018-11-27 04:55 | NUR ---
Pericare Pt alert, awake, incontinent of urine. Pericare provided with DEPARTMENT STORE GENERAL MANAGER assist. Repositioned. Call light within reach. To monitor.
[2018-11-27] MEDS: CEFAZOLIN 1 GM IVPB PREMIX 50 ML IV SCH ×3 (05:50→21:13)
[2018-11-27] MEDS: KCL 20 mEq in D5/0.45NS 1000mL 1,000 ML IV SCH ×2 (05:51→12:46)
--- NOTE | 2018-11-27 06:45 | NUR ---
Closing notes Pt asleep, no s/s distress. IVF infusing at ordered rate R. FA 22G no s/s infiltration. GT clamped at this time, abdominal binder on. Pt repositioned. Bed low, locked, siderails x3 up, bed alarm on. Call light within reach. All needs met throughout the night. To endorse to AM nurse.
[2018-11-27 07:18] LABS: BASOPHILS % (AUTO) 0.1 % (0.0-2.0); EOSINOPHILS # (AUTO) 0.1 K/uL (0.0-0.4); EOSINOPHILS % (AUTO) 0.6 % (0.0-4.0); HEMATOCRIT 37.1 % (36-54); LYMPHOCYTES # (AUTO) 0.8 K/uL (1.0-5.5); LYMPHOCYTES % (AUTO) 5.6 % (20.5-51.5); MEAN CORPUSCULAR HEMOGLOBIN 28 pg (27-31); MEAN CORPUSCULAR HGB CONC 32 % (32-36); MEAN CORPUSCULAR VOLUME 87 fL (79.0-98.0); MONOCYTES # (AUTO) 0.6 K/uL (0.0-1.0); MONOCYTES % (AUTO) 4.3 % (1.7-9.3); NEUTROPHILS % (AUTO) 89.4 % (40.0-70.0); PLATELET COUNT (AUTO) 509 K/uL (130-430); RED BLOOD CELL COUNT(AUTO) 4.28 MIL/uL (4.2-6.2); RED CELL DISTRIBUTION WIDTH 15.2 % (9.0-15.0); WHITE BLOOD COUNT (AUTO) 14.6 K/uL (4.8-10.8)
[2018-11-27 07:25] VITALS: BP_SYST 109
--- NOTE | 2018-11-27 07:25 | NUR ---
INITIAL ROUNDS Received pt AAOx1, pt c/o nausea-pt given Zofran as ordered. HOB elevated and oral care provided. Pt requesting water-pt NPO. Pt on air mattress, will reposition Q2 hr with pillow support and heels off-loaded for skin care. G-tube site with green drainage seeping at site, IVF infusing well to RFA at ordered rate with no s/s infiltration to site. Side rails up x3, bed alarm on, room close to nursing station for safety. Call light within reach.
[2018-11-27 07:27] LABS: ANION GAP 9 (5-15); CHLORIDE 107 mmol/L (98-107); CREATININE 1.28 mg/dL (0.55-1.30); GLUCOSE 151 mg/dL (70-99); SODIUM SERUM 142 mmol/L (136-145); UREA NITROGEN, BLOOD 75 mg/dL (8-21)
[2018-11-27 07:34] LABS: POTASSIUM 2.8 mmol/L (3.5-5.1)
[2018-11-27] MEDS ORDERED: POTASSIUM CHLORIDE 40 MEQ in NS 250 ML IV ONE (08:15)
[2018-11-27] MEDS: MEMANTINE HCL 5 MG TABLET GT SCH ×2 (09:35→21:08)
[2018-11-27] MEDS: ASPIRIN 81 MG TABLET(ECOTRIN) GT SCH (09:35)
[2018-11-27] MEDS: FERROUS SULFATE 300 MG/5 ML UDC GT SCH ×2 (09:35→21:08)
[2018-11-27] MEDS: DOCUSATE SODIUM 100 MG CAPSULE PO SCH ×2 (09:35→21:08)
--- NOTE | 2018-11-27 09:55 | NUR ---
ROUNDS/TUBE FEEDING Pt resting quietly with no s/s resp distress, no s/s pain. Noted pt kept trying to grab at the g-tube site. Old abd binder soiled-Pt cleaned up. G-tube site with moderate amount of green discharge noted on drainage 4x4 dressing, old dressing removed, area cleansed with normal saline, moisture barrier cream applied to reddened area and new abd binder put on pt over g-tube site. Foam dressing applied to pt's tailbone area for skin precaution and placed onto air mattress with pillow support for skin care. HOB elevated for aspiration precautions. K-Samuel started as ordered. G-tube feeding of Jevity started at ordered rate. AM medications given via G-tube, G-tube flushed and port site cleaned. Oral care provided-noted pt had some greenish sputum in his mouth. All safety precautions remain in place.
--- NOTE | 2018-11-27 10:53 | NUR ---
Nutrition Update Bobby Scale 16 noted. Pt admitted for greenish discharge from GT. Diet: Jevity 1.2 at 40 ml/hr, Free Water Flush: 200 Q 6hrs via GT BMI: 17.2 kg/m2 RD to follow per nutrition care standards.
[2018-11-27 11:22] VITALS: BP_SYST 112
--- NOTE | 2018-11-27 14:05 | NUR ---
ROUNDS/ Pt resting quietly in bed with no s/s resp distress, no s/s pain or discomfort. G-tube dressing changed due to green drainage saturated previous dressing, abd cleansed with normal saline, moisture barrier cream applied to reddened area. Pt seen by DR. Sequeira. All precautions remain in place.
[2018-11-27] MEDS ORDERED: PANTOPRAZOLE SODIUM 40 MG/VIAL (PROTONIX) IVP ONE (14:15)
[2018-11-27] MEDS ORDERED: POTASSIUM CHLORIDE 20 MEQ TAB.PRT.SR GT ONE (14:15)
--- NOTE | 2018-11-27 14:26 | NUR ---
CONSULTATION PAGED/CALLED Reason for Consultation: [] GT SITE DISCHARGE Person Who was Notified: [] JEANIE Consulting Physician: [] DR REHMAN ORGANIZATIONAL DEVELOPMENT MANAGER FOR DR SOOD Knifeman Specialty: [] GI Ordering Physician: [] DR BECKFORD
--- NOTE | 2018-11-27 14:31 | NUR ---
Dietitian Recommendations * Consider increasing to Jevity 1.2 at 70 ml/hr, Free Water Flush: 100 ml Q6h via GT if/when medically appropriate Provides: 2016 kcal/day, 93 gm protein/day, and 1756 ml free water/day Meets: 96% of lower end of estimated caloric needs and 111% of lower end of estimated protein needs LP, RD Please refer to Nutrition Assessment for details. Addendum: 11/27/18 at [address] Amended: Links added.
[2018-11-27 15:37] VITALS: BP_SYST 97
--- NOTE | 2018-11-27 15:45 | NUR ---
ROUNDS/NAUSEA/ORAL CARE Pt moaning, indicated he might vomit-pt given emesis basin. Pt given Zofran as ordered. Oral care provided, noted small amount of thin green sputum in pt's mouth. HOB elevated, pt repositioned with pillow support and heels off-loaded. All safety precautions remain in place.
--- NOTE | 2018-11-27 18:52 | NUR ---
CLOSING NOTE Pt resting quietly in bed with no s/s resp distress, no c/o pain or discomfort, no further c/o nausea. Wound culture collected from the g-tube site. IVF infusing well to RFA at ordered rate with no s/s infiltration to site. Jevity 1.2 infusing well via g-tube at ordered rate. Oral care provided. Aspiration, skin and safety precautions remain in place.
--- NOTE | 2018-11-27 19:15 | NUR ---
Opening Notes Received patient in bed resting aaox1 norwegian speaking but able to verbalize needs in partial yi. Patient states no pain at this time. Informed patient to call for assistance with with any needs. SCD's in place. IV infusing D5 1/2 NS at 75ml/hr with no infiltration at the site. GT Feeding at 40ml/hr. Oriented the patient to the room and use of the call light. Safety precautions in place. Bed alarm is active. Will monitor on rounds.
[2018-11-27 20:00] VITALS: BP_SYST 102
--- NOTE | 2018-11-27 20:05 | NUR ---
Vitals taken, Oral care provided. Patient asking for water but is npo. GT flush 200ml. 5ml residual. Patient repositioned and pulled up in bed.
[2018-11-27] MEDS: DONEPEZIL HCL 5 MG TABLET (ARICEPT) GT SCH (21:08)
--- NOTE | 2018-11-27 22:40 | NUR ---
Patient tolerated GT feeding well. GT dressing changed and linen replaced. No complaints of pain or sob. will cont to monitor on rounds.
[2018-11-28 00:48] VITALS: BP_SYST 128
[2018-11-28] MEDS: LevALBUTEROL HCL 1.25 MG/0.5 ML *CONC.* VIAL.NEB (XOPENEX CONC.) INH SCH ×4 (01:06→19:35)
--- NOTE | 2018-11-28 01:06 | NUR ---
Patient GT flushed with 200ml h2o, 5ml residual. Repositioned towards the left. no complaints of pain. patient asking for water. educated to patient he is NPO. Oral care provided. Will cont to monitor on rounds.
[2018-11-28] MEDS: KCL 20 mEq in D5/0.45NS 1000mL 1,000 ML IV SCH ×2 (02:10→13:48)
[2018-11-28] MEDS: CEFAZOLIN 1 GM IVPB PREMIX 50 ML IV SCH ×3 (05:28→22:04)
--- NOTE | 2018-11-28 06:33 | NUR ---
Closing Notes Patient in bed resting. Tolerated IV antibiotics with no adverse reaction. IV fluids infusing with no infiltration at the iv site. GT FLushed and patient repositioned. Bed low and in locked position. No pain or respiratory distress. All needs have been met and will endorse care to incoming nurse.
--- NOTE | 2018-11-28 07:45 | NUR ---
opening note patient is resting in bed, getting a breathing treatment, assessment completed, patient is just stating "agua" and did not answer us when I asked for his name and , IV fluids running, g-tube intact with Jevity 1.2 running, no signs of distress, no other needs at this time, fall/safety precautions in place.
[2018-11-28 08:09] LABS: BASOPHILS % (AUTO) 0.2 % (0.0-2.0); EOSINOPHILS # (AUTO) 0.1 K/uL (0.0-0.4); EOSINOPHILS % (AUTO) 1.1 % (0.0-4.0); HEMATOCRIT 33.3 % (36-54); HEMOGLOBIN 10.6 g/dL (14.0-18.0); LYMPHOCYTES # (AUTO) 0.8 K/uL (1.0-5.5); LYMPHOCYTES % (AUTO) 5.9 % (20.5-51.5); MEAN CORPUSCULAR HEMOGLOBIN 28 pg (27-31); MEAN CORPUSCULAR HGB CONC 32 % (32-36); MEAN CORPUSCULAR VOLUME 88 fL (79.0-98.0); MONOCYTES # (AUTO) 0.6 K/uL (0.0-1.0); MONOCYTES % (AUTO) 4.7 % (1.7-9.3); NEUTROPHILS # (AUTO) 11.2 K/uL (1.8-7.7); NEUTROPHILS % (AUTO) 88.1 % (40.0-70.0); PLATELET COUNT (AUTO) 442 K/uL (130-430); RED BLOOD CELL COUNT(AUTO) 3.81 MIL/uL (4.2-6.2); RED CELL DISTRIBUTION WIDTH 15.6 % (9.0-15.0); WHITE BLOOD COUNT (AUTO) 12.7 K/uL (4.8-10.8)
[2018-11-28 08:18] VITALS: BP_SYST 113
[2018-11-28 08:26] LABS: ANION GAP 5 (5-15); CALCIUM 8.7 mg/dL (8.4-11.0); CHLORIDE 113 mmol/L (98-107); CREATININE 0.93 mg/dL (0.55-1.30); GLUCOSE 138 mg/dL (70-99); SODIUM SERUM 143 mmol/L (136-145); UREA NITROGEN, BLOOD 40 mg/dL (8-21)
[2018-11-28] MEDS: MEMANTINE HCL 5 MG TABLET GT SCH ×2 (08:57→20:21)
[2018-11-28] MEDS: ASPIRIN 81 MG TABLET(ECOTRIN) GT SCH (08:57)
[2018-11-28] MEDS: PANTOPRAZOLE SODIUM 40 MG/VIAL (PROTONIX) IVP SCH (08:57)
[2018-11-28] MEDS: DOCUSATE SODIUM 100 MG CAPSULE PO SCH ×2 (08:57→20:21)
[2018-11-28] MEDS: FERROUS SULFATE 300 MG/5 ML UDC GT SCH ×2 (08:57→20:21)
[2018-11-28] MEDS ORDERED: GASTROGRAFIN 120 ML ONE (09:26)
--- NOTE | 2018-11-28 10:30 | NUR ---
rounds patient resting in bed, IV fluids running with no signs of infiltration, patient grunting and asking for water, I educated him that he cannot drink water, no other needs at this time, fall/safety precautions in place.
[2018-11-28 11:25] VITALS: BP_SYST 109
--- NOTE | 2018-11-28 12:15 | NUR ---
new Jevity 1.2 bottle hung new tube feeding bottle hung, patient tolerated well, patient said he was cold and I gave him a warm blanket, no other needs at this time, fall/safety precautions in place.
--- NOTE | 2018-11-28 14:00 | NUR ---
rounds patient is resting in bed, about to get breathing treatment, scheduled ancef was hung, no other needs at this time, fall/safety precautions in place, IV fluids running, tube feeding running and tolerating well.
[2018-11-28 15:36] VITALS: BP_SYST 92
--- NOTE | 2018-11-28 18:47 | NUR ---
closing note patient resting in bed, IV fluids running with no signs of infiltration, patient grunting and asking for water, I educated him that he cannot drink water, tube feeding running and patient is tolerating well, no other needs at this time, fall/safety precautions in place, will endorse report to [facility] shift nurse to continue with care, 200cc of free water Q6, awaiting x-ray for GI consult to read over for tomorrow to determine plan of care for patient.
--- NOTE | 2018-11-28 19:15 | NUR ---
OPENING NOTE Received report from Marychuy. Patient resting in bed with eyes closed. Breathing unlabored and even on room air. No signs of distress, no needs at this time. Fall, safety, aspiration precautions in place. Bed in lowest position, brake on, alarm on, call light within reach. IVF infusing as ordered. SCDs on. Pillow support in place. G-tube feeding infusing as ordered. Will continue to monitor.
[2018-11-28] MEDS: DONEPEZIL HCL 5 MG TABLET (ARICEPT) GT SCH (20:21)
[2018-11-28 20:34] VITALS: BP_SYST 98
--- NOTE | 2018-11-28 22:06 | NUR ---
IV abx hung
[2018-11-28 23:24] VITALS: BP_SYST 112
--- NOTE | 2018-11-29 00:16 | NUR ---
Patient resting in bed with eyes closed. Breathing unlabored and even on room air. No signs of distress, no needs at this time. Fall, safety, aspiration precautions in place. Bed in lowest position, brake on, alarm on, call light within reach. IVF infusing as ordered. SCDs on. Pillow support in place. G-tube feeding infusing as ordered. Will continue to monitor.
[2018-11-29] MEDS: LevALBUTEROL HCL 1.25 MG/0.5 ML *CONC.* VIAL.NEB (XOPENEX CONC.) INH SCH ×4 (00:35→19:45)
--- NOTE | 2018-11-29 04:08 | NUR ---
SUPERVISOR ALUMINUM BOAT ASSEMBLY giving patient a bed bath and changing patient.
[2018-11-29] MEDS: KCL 20 mEq in D5/0.45NS 1000mL 1,000 ML IV SCH ×2 (04:34→18:33)
--- NOTE | 2018-11-29 04:35 | NUR ---
New IVF hung
[2018-11-29] MEDS: CEFAZOLIN 1 GM IVPB PREMIX 50 ML IV SCH ×3 (05:59→20:43)
--- NOTE | 2018-11-29 06:01 | NUR ---
IV abx hung
--- NOTE | 2018-11-29 06:44 | NUR ---
CLOSING NOTE Patient resting in bed with eyes closed. Breathing unlabored and even on room air. No signs of distress, no needs at this time. Fall, safety, aspiration precautions in place. Bed in lowest position, brake on, alarm on, call light within reach. IVF infusing as ordered. SCDs on. Pillow support in place. G-tube feeding infusing as ordered. Will endorse cares to day shift nurse.
[2018-11-29 07:21] LABS: BASOPHILS % (AUTO) 0.8 % (0.0-2.0); EOSINOPHILS # (AUTO) 0.4 K/uL (0.0-0.4); HEMATOCRIT 33.9 % (36-54); HEMOGLOBIN 10.8 g/dL (14.0-18.0); LYMPHOCYTES # (AUTO) 0.6 K/uL (1.0-5.5); LYMPHOCYTES % (AUTO) 10.3 % (20.5-51.5); MEAN CORPUSCULAR HEMOGLOBIN 28 pg (27-31); MEAN CORPUSCULAR HGB CONC 32 % (32-36); MEAN CORPUSCULAR VOLUME 89 fL (79.0-98.0); MONOCYTES # (AUTO) 0.4 K/uL (0.0-1.0); MONOCYTES % (AUTO) 6.9 % (1.7-9.3); NEUTROPHILS # (AUTO) 4.8 K/uL (1.8-7.7); PLATELET COUNT (AUTO) 417 K/uL (130-430); RED BLOOD CELL COUNT(AUTO) 3.83 MIL/uL (4.2-6.2); RED CELL DISTRIBUTION WIDTH 15.4 % (9.0-15.0); WHITE BLOOD COUNT (AUTO) 6.3 K/uL (4.8-10.8)
[2018-11-29 07:39] LABS: ALANINE AMINOTRANSFERASE 134 U/L (12-78); ALBUMIN 1.8 g/dL (3.4-4.8); ANION GAP 7 (5-15); ASPARTATE AMINOTRANSFERASE 216 U/L (10-37); CALCIUM 8.5 mg/dL (8.4-11.0); CHLORIDE 112 mmol/L (98-107); CREATININE 0.81 mg/dL (0.55-1.30); GLUCOSE 113 mg/dL (70-99); LIPASE 158 U/L (73-393); POTASSIUM 4.7 mmol/L (3.5-5.1); SODIUM SERUM 147 mmol/L (136-145); TOTAL BILIRUBIN 0.3 mg/dL (0.0-1.0); UREA NITROGEN, BLOOD 30 mg/dL (8-21)
--- NOTE | 2018-11-29 07:55 | NUR ---
INITIAL ROUNDS Received pt AAOx1, resting quietly with no s/s resp distress. C/o slight back pain-pt repositioned with pillow support and heels off-loaded for skin care.HOB elevated and oral care provided. Pt requesting water-pt NPO. Pt on air mattress. G-tube site with small amount of beige drainage seeping at site, IVF infusing well to RFA at ordered rate with no s/s infiltration to site. Side rails up x3, bed alarm on, room close to nursing station for safety. Call light within reach.
[2018-11-29 08:22] VITALS: BP_SYST 90
[2018-11-29] MEDS: PANTOPRAZOLE SODIUM 40 MG/VIAL (PROTONIX) IVP SCH (10:06)
[2018-11-29] MEDS: FERROUS SULFATE 300 MG/5 ML UDC GT SCH ×2 (10:06→20:42)
[2018-11-29] MEDS: MEMANTINE HCL 5 MG TABLET GT SCH ×2 (10:06→20:42)
[2018-11-29] MEDS: DOCUSATE SODIUM 100 MG CAPSULE PO SCH ×2 (10:07→20:42)
[2018-11-29] MEDS: ASPIRIN 81 MG TABLET(ECOTRIN) GT SCH (10:07)
[2018-11-29 11:27] VITALS: BP_SYST 139
--- NOTE | 2018-11-29 12:23 | NUR ---
ROUNDS Pt resting quietly in bed with no s/s resp distress, no c/o pain or discomfort, no c/o nausea. Pt repositioned with pillow support and heels off-loaded for skin care. All precautions remain in place.
[2018-11-29 15:53] VITALS: BP_SYST 94
--- NOTE | 2018-11-29 16:24 | NUR ---
ROUNDS Pt resting quietly in bed with no s/s resp distress, no c/o pain or discomfort. No c/o nausea. Oral care provided. Pt repositioned with pillow support and heels off-loaded for skin care. G-tube dressing changed-area cleansed with normal saline, moisture barrier cream applied to reddened area, clean drain dressing placed and secured in place with paper tape. Pt tolerated well. New bottle Jevity hung with new tubing. All precautions remain in place.
--- NOTE | 2018-11-29 16:45 | NUR ---
PATIENT DISCHARGED HOME Patient given medication reconciliation form and D/C instructions. Exit Care on Syncope, HTN, Dehydration explained and provided. Patient verbalized her understanding. MD discussed with patient the results and treatment provided. Ambulatory with steady gait for discharge to home. Patient in stable condition, ID band removed. IV catheter removed, intact and dressing applied, no active bleeding. Patient educated on pain management. All belongings sent with patient. Patient left floor via wheelchair to private vehicle in no distress. Addendum: 11/29/18 at 1752 by Tai Calle RN DOCUMENTED ON WRONG PATIENT.
--- NOTE | 2018-11-29 17:52 | NUR ---
Pt seen by Dr. Delvalle, case discussed, DR. Delvalle stated pt will be transferred back to facility tomorrow.
--- NOTE | 2018-11-29 18:08 | NUR ---
CLOSING NOTE Pt resting quietly in bed with no s/s resp distress, no c/o pain or discomfort, no c/o nausea. IVF infusing well to RFA at ordered rate with no s/s infiltration to site. Jevity infusing well via g-tube at ordered rate. Minimal drainage noted. Pt repositioned with pillow support and heels off-loaded for skin care. Aspiration, skin and safety precautions remain in place.
--- NOTE | 2018-11-29 20:15 | NUR ---
Turning off loading Reposition and TURN comfort measures implemented on schedule kept clean and dry as needed .
[2018-11-29 20:17] VITALS: BP_SYST 119
[2018-11-29] MEDS: DONEPEZIL HCL 5 MG TABLET (ARICEPT) GT SCH (20:42)
--- NOTE | 2018-11-29 22:53 | NUR ---
ANCEF 1 GM IVPB ADMINISTER as ordered patient kept upright position no adverse reaction noted chest movement symmetrical .
--- NOTE | 2018-11-29 22:56 | NUR ---
GASTRIC TUBE SITE REDNESS NOTED DRESSING CHANGE DONE & TOLERATED .
--- NOTE | 2018-11-29 23:18 | NUR ---
PATIENT AWAKE CONTRACTURES NOTED TO BOTH LOWER LEGS COMFORT MEASURES IMPLEMENTED & HELPFUL .
--- NOTE | 2018-11-29 23:35 | NUR ---
large stool noted bed bath given complete & tolerated .
--- NOTE | 2018-11-30 00:25 | NUR ---
CLEANED/REPOSITIONED INCONTINENCE CARE RENDERED WITH ASSISTANCE FROM HUBERT CASTLE. PT REPOSITIONED USING PILLOW SUPPORT. PT TOLERATED WELL. WILL MONITOR. Addendum: 12/01/18 at 0404 by Claudia Cohen RN FIONA: DISREGARD, WRONG DATE
[2018-11-30] MEDS: LevALBUTEROL HCL 1.25 MG/0.5 ML *CONC.* VIAL.NEB (XOPENEX CONC.) INH SCH ×4 (00:30→20:05)
[2018-11-30 01:37] VITALS: BP_SYST 110
--- NOTE | 2018-11-30 03:10 | NUR ---
Patient agitated Reposition pull up in bed striking out , patient spits Redirect HOB kept elevated linin change tolerated .
[2018-11-30] MEDS: CEFAZOLIN 1 GM IVPB PREMIX 50 ML IV SCH (05:21)
[2018-11-30] MEDS: KCL 20 mEq in D5/0.45NS 1000mL 1,000 ML IV SCH ×2 (05:22→16:00)
--- NOTE | 2018-11-30 06:02 | NUR ---
bed bath given large stool frequent pull patient up in bed off loading with pillows abdominal binder inplace .
--- NOTE | 2018-11-30 08:11 | NUR ---
Assumed Care: Assumed care from Gila. Patient was transferred to room 132-A.Tube feeds on going. With abdominal binder on.Bed locked at lowest position. Bed alarm on.Patient placed close to nursing station.safety measures rendered. Continue to monitor.
[2018-11-30 08:24] VITALS: BP_SYST 95
[2018-11-30 08:47] VITALS: BP_SYST 95
[2018-11-30] MEDS: PANTOPRAZOLE SODIUM 40 MG/VIAL (PROTONIX) IVP SCH (09:29)
[2018-11-30] MEDS: MEMANTINE HCL 5 MG TABLET GT SCH ×2 (09:29→20:01)
[2018-11-30] MEDS: FERROUS SULFATE 300 MG/5 ML UDC GT SCH ×2 (09:29→20:01)
[2018-11-30] MEDS: ASPIRIN 81 MG TABLET(ECOTRIN) GT SCH (09:29)
[2018-11-30] MEDS: DOCUSATE SODIUM 100 MG CAPSULE PO SCH ×2 (09:29→20:01)
--- NOTE | 2018-11-30 09:29 | NUR ---
MEDS/G-TUBE: NO RESIDUALS PRIOR TO GIVING MEDS. CRUSHED MEDS GIVEN VIA G-TUBE. WELL TOLERATED. FLUSHED WITH WATER AFTER MEDS.NO PROBLEM.
[2018-11-30 12:47] VITALS: BP_SYST 99
--- NOTE | 2018-11-30 12:48 | NUR ---
RN ROUNDING: PATIENT AWAKE .NO ACUTE DISTRESS. TUBE FEEDS ON GOING. IVF RUNNING WELL. BED LOCKED AT LOWEST POSITION. SAFETY MEASURES RENDERED.
[2018-11-30] MEDS ORDERED: MEROPENEM 1 GM in NS 100 ML IV ONE (14:00)
--- NOTE | 2018-11-30 14:21 | NUR ---
Discharge Planning: Patient referral faxed to [facility] (f [phone] p [phone]) DCP to follow up.
--- NOTE | 2018-11-30 14:30 | NUR ---
CHANGE IV ANTIBIOTIC: IV ANTIBIOTIC CHANGED TO MERREM ORDERED BY DR JI PER SENSITIVITY. WITHOUT A PROBLEM.
--- NOTE | 2018-11-30 16:00 | NUR ---
RN ROUNDS: RESTING. NO UNTOWARD MANIFESTATIONS NOTED. CONTINUE TO MONITOR.
[2018-11-30 16:03] VITALS: BP_SYST 119
--- NOTE | 2018-11-30 16:20 | NUR ---
Nutrition F/U RD reviewed pt's current EMR record including diet Hx, physician notes, nursing notes, pertinent labs/meds/procedures, care trends, and care activity. Current Diet Order: Jevity 1.2 at 40 ml/hr, Free Water Flush: 200 Q6hrs via GT x3 days Provides: 1152 kcal/day, 53 gm protein/day, and 1575 ml free water/day Meets: 55% of lower end of estimated caloric needs and 63% of lower end of estimated protein needs Subjective Info: Pt seen awake but confused at time of RD visit. TF infusing as per physician order. Per RN, pt has been tolerating TF well, w/ BM x1 today. No pending plans/procedures, however, RN stated that pt's GT site cellulitis is still being monitored. Estimated Energy Expenditure (kcals/day) 5992-5048 kcal/day (30-35 kcal/kg IBW for wt gain promotion) Estimated Protein Required (g/day) 84-105 gm/day (1.2-1.5 gm/kg IBW for wt gain promotion) Estimated Fluid Required (l/day) 1.3-1.5 L/day (25-30 ml/kg CBW for geriatric maintenance) Problem/Etiology/Signs/Symptoms Inadequate EN support related to wt gain promotion as evidenced by current TF prescription meets less than 75% of estimated nutritional requirements. *ongoing Expected Outcomes/Goals - Monitor EN support w/ goal of pt meeting at least 75% of estimated nutritional needs, labs trending WNL, normal GI function, and skin integrity/wt maintenance Dietitian Recommendations * Consider increasing to Jevity 1.2 at 70 ml/hr, Free Water Flush: 100 ml Q6h via GT if/when medically appropriate Provides: 2016 kcal/day, 93 gm protein/day, and 1756 ml free water/day Meets: 96% of lower end of estimated caloric needs and 111% of lower end of estimated protein needs Follow Up High Risk: F/U in 2-3 days
--- NOTE | 2018-11-30 16:25 | NUR ---
Dietitian Recommendations * Consider increasing to Jevity 1.2 at 70 ml/hr, Free Water Flush: 100 mlQ6h via GT if/when medically appropriate Provides: 2016 kcal/day, 93 gm protein/day, and 1756 ml free water/day Meets: 96% of lower end of estimated caloric needs and 111% of lower end of estimated protein needs LP, RD Please refer to Nutrition F/U for details.
--- NOTE | 2018-11-30 18:00 | NUR ---
TUBE FEEDING RATE CHANGED/WATER FLUSH: DR REHMAN CAME AND INCREASED TUBE FEED RATE TO 60CC/H.100CC Q 6H WATER FLUSHED RENDERED ORDERED.
--- NOTE | 2018-11-30 18:44 | NUR ---
CLOSING NOTES: CARE RENDERED. TUBE FEEDS ON GOING. IVF INTACT. NO ACUTE DISTRESS. BED LOCKED AT LOWEST POSITION. BED ALARM ON. SAFETY MEASURES RENDERED.
--- NOTE | 2018-11-30 19:25 | NUR ---
OPENING NOTE RECEIVED CARE OF PT. PT RESTING IN BED, AWAKE AND CONFUSED, NO S/S OF ACUTE DISTRESS. BREATHING IS UNLABORED TO ROOM AIR. IVF ARE INFUSING AT ORDERED RATE, NO SIGN OF INFILTRATION AT IV SITE. TUBE FEEDING IS RUNNING AT 60 CC/HR. SAFETY PRECAUTIONS ARE IN PLACE: BED IS LOCKED IN LOWEST POSITION, CALL LIGHT IS WITH PT, SIDE RAILS UP X3, CLOSE TO NURSES STATION, BED ALARM ON. ASPIRATION AND PRESSURE PRECAUTIONS ARE IN PLACE. WILL MONITOR.
[2018-11-30 20:00] VITALS: BP_SYST 116
[2018-11-30] MEDS: DONEPEZIL HCL 5 MG TABLET (ARICEPT) GT SCH (20:01)
[2018-11-30] MEDS: MEROPENEM 1 GM in NS 100 ML IV SCH (20:01)
--- NOTE | 2018-11-30 20:01 | NUR ---
SCHEDULED MEDICATION PASS PT GIVEN SCHEDULED MEDICATIONS VIA GTUBE. GTUBE IS PATENT AND WITH 0 RESIDUAL. MERREM ANTIBIOTIC GIVEN VIA IVPB. IV IS INFUSING WELL WITH NO S/S OF INFILTRATION. MEDICATIONS EXPLAINED TO PT, PT CONFUSED AND DID NOT VERBALIZE UNDERSTANDING. SAFETY MAINTAINED. WILL MONITOR.
--- NOTE | 2018-11-30 22:30 | NUR ---
RN ROUNDS: PT RESTING IN BED WITH EYES CLOSED. VISIBLE SYMMETRICAL RISE AND FALL OF CHEST TO ROOM AIR. NO S/S OF ACUTE DISTRESS. IVF ARE INFUSING AT ORDERED RATE. SAFETY, ASPIRATION, AND PRESSURE PRECAUTIONS ARE IN PLACE. WILL MONITOR.
[2018-12-01 00:18] VITALS: BP_SYST 92
[2018-12-01] MEDS: LevALBUTEROL HCL 1.25 MG/0.5 ML *CONC.* VIAL.NEB (XOPENEX CONC.) INH SCH ×3 (00:20→13:21)
--- NOTE | 2018-12-01 00:25 | NUR ---
CLEANED/REPOSITIONED INCONTINENCE CARE RENDERED WITH ASSISTANCE FROM HUBERT CASTLE. PT REPOSITIONED USING PILLOW SUPPORT. PT TOLERATED WELL. WILL MONITOR.
[2018-12-01] MEDS ORDERED: HYDROcodone/ACETAMIN 5-325 MG TAB (NORCO/ VICODIN) PO PRN (02:00)
[2018-12-01] MEDS ORDERED: HYDROcodone/ACETAMIN 5-325 MG TAB (NORCO/ VICODIN) GT PRN (02:00)
--- NOTE | 2018-12-01 02:03 | NUR ---
SPOKE TO DR. JI REGARDING PT'S REPORT OF ABDOMINAL AND HIP PAIN. NEW ORDER RECEIVED. WILL CARRY OUT.
--- NOTE | 2018-12-01 02:11 | NUR ---
PAIN/NORCOM PT GIVEN NORCO 5-325 MG VIA GTUBE FOR PAIN. MEDICATION EXPLAINED TO PT, PT CONFUSED AND DID NOT VERBALIZE UNDERSTANDING. SAFETY MAINTAINED. WILL MONITOR. Addendum: 12/01/18 at 0407 by Claudia Cohen RN TITLE CORRECTION: PAIN/NORCO
[2018-12-01] MEDS: ONDANSETRON HCL 4 MG/2 ML VIAL IVP PRN (02:28)
--- NOTE | 2018-12-01 02:28 | NUR ---
NAUSEA/ZOFRAN PT REPORTING NAUSEA. ZOFRAN 4 MG IVP ADMINISTERED. MEDICATION EXPLAINED TO PT. SAFETY, ASPIRATION, AND PRESSURE PRECAUTIONS MAINTAINED. WILL MONITOR.
--- NOTE | 2018-12-01 02:45 | NUR ---
Paged Dr. Delvalle
--- NOTE | 2018-12-01 02:53 | NUR ---
SPOKE TO DR. JI REGARDING PT'S AGITATION AND INFORMED MD THAT PT IS PULLED OUT IV. MD ORDERED BILATERAL SOFT-WRIST RESTRAINTS. WILL CARRY OUT.
--- NOTE | 2018-12-01 04:24 | NUR ---
CLEANED/REPOSITIONED PT CLEANED AND REPOSITIONED WITH HELP FROM ANDREA GASPAR. PT TOLERATED WELL. RESTRAINTS REAPPLIED. SAFETY MAINTAINED. WILL MONITOR.
[2018-12-01] MEDS: KCL 20 mEq in D5/0.45NS 1000mL 1,000 ML IV SCH (05:38)
--- NOTE | 2018-12-01 06:32 | NUR ---
CLOSING NOTE PT RESTING IN BED, NO S/S OF ACUTE DISTRESS, PT IS CALM AT THIS MOMENT. PT HAS BEEN AGITATED THROUGHOUT SHIFT, YELLING AND MOANING. SOFT-WRIST RESTRAINTS ARE IN PLACE ORDERED. GTUBE IS PATENT AND FLUSHING WELL. IVF ARE INFUSING ORDERED. PT HAS BEEN CLEANED AND REPOSITIONED. SAFETY, ASPIRATION, AND PRESSURE PRECAUTIONS ARE IN PLACE. ALL NEEDS MET DURING SHIFT. WILL CONTINUE TO MONITOR UNTIL PT CARE IS ENDORSED TO DAY SHIFT RN.
[2018-12-01 06:58] LABS: BASOPHILS # (AUTO) 0.1 K/uL (0.0-0.2); BASOPHILS % (AUTO) 0.8 % (0.0-2.0); EOSINOPHILS # (AUTO) 0.5 K/uL (0.0-0.4); EOSINOPHILS % (AUTO) 7.5 % (0.0-4.0); HEMATOCRIT 30.3 % (36-54); HEMOGLOBIN 9.6 g/dL (14.0-18.0); LYMPHOCYTES % (AUTO) 14.7 % (20.5-51.5); MEAN CORPUSCULAR HEMOGLOBIN 28 pg (27-31); MEAN CORPUSCULAR HGB CONC 32 % (32-36); MEAN CORPUSCULAR VOLUME 89 fL (79.0-98.0); MONOCYTES # (AUTO) 0.5 K/uL (0.0-1.0); MONOCYTES % (AUTO) 7.4 % (1.7-9.3); NEUTROPHILS # (AUTO) 4.8 K/uL (1.8-7.7); NEUTROPHILS % (AUTO) 69.6 % (40.0-70.0); PLATELET COUNT (AUTO) 323 K/uL (130-430); RED CELL DISTRIBUTION WIDTH 15.5 % (9.0-15.0); WHITE BLOOD COUNT (AUTO) 6.9 K/uL (4.8-10.8)
[2018-12-01 07:19] LABS: ANION GAP 1 (5-15); CALCIUM 8.2 mg/dL (8.4-11.0); CHLORIDE 107 mmol/L (98-107); GLUCOSE 88 mg/dL (70-99); POTASSIUM 4.5 mmol/L (3.5-5.1); SODIUM SERUM 134 mmol/L (136-145); UREA NITROGEN, BLOOD 19 mg/dL (8-21)
--- NOTE | 2018-12-01 07:25 | NUR ---
Am Rounds: Patient on bilateral soft wrist restraint as ordered. Calm this time.Tube feeds on going.Ivf running at right forearm intact. Call light with in reach.Bed locked at lowest position. Bed alarm on. Continue to monitor for any untoward manifestation.
[2018-12-01 08:05] VITALS: BP_SYST 95
[2018-12-01] MEDS: MEROPENEM 1 GM in NS 100 ML IV SCH (08:50)
[2018-12-01] MEDS: FERROUS SULFATE 300 MG/5 ML UDC GT SCH (08:50)
[2018-12-01] MEDS: PANTOPRAZOLE SODIUM 40 MG/VIAL (PROTONIX) IVP SCH (08:50)
--- NOTE | 2018-12-01 08:50 | NUR ---
MEDS/GT-TUBE: NO RESIDUALS PRIOR TO GIVING MEDS. PATIENT TOLERATED WELL THE CRUSHED MEDS.WATER FLUSHED RENDERED.NO ADVERSE REACTIONS NOTED.
[2018-12-01] MEDS: DOCUSATE SODIUM 100 MG CAPSULE PO SCH (08:51)
[2018-12-01] MEDS: ASPIRIN 81 MG TABLET(ECOTRIN) GT SCH (08:51)
[2018-12-01] MEDS: MEMANTINE HCL 5 MG TABLET GT SCH (08:51)
--- NOTE | 2018-12-01 11:00 | NUR ---
Rn Rounds: Patient voided.Care rendered by Wind Turbine Technician. Not in any distress.Bilateral soft wrist restraint on. No problem.
[2018-12-01 12:00] VITALS: BP_SYST 96
--- NOTE | 2018-12-01 12:25 | NUR ---
Rn Rounds: Patient wants his wrist restraint off .Explained patient that he needs it,per Md order due to pulling out his tubes.Continue to monitor. Safety precautions rendered. No acute distress.
--- NOTE | 2018-12-01 14:25 | NUR ---
Rn Rounds: No acute distress. Calm this time. Tube feeds on going. Ivf running well.Safety measures rendered.Bilateral soft wrist restraint on.Continue to monitor.
--- NOTE | 2018-12-01 14:57 | NUR ---
Discharge Planning: DCP confirmed with Eileen at [facility] (f [phone] p [phone]) [id number], and arranged transportation with [facility] ([phone]) 5:00pm P/U. Nurse aware and packet taken to nurses station.
--- NOTE | 2018-12-01 14:58 | NUR ---
DC PLANNING: CM ATTEMPTED TO CONTACT PATIENT'S SON ( ALESHA CASTELLANO ) @ REGARDING DC BACK TO [facility]. HOWEVER, WAS UNAVAILABLE. CM LEFT A VOICE MESSAGE. CM ALSO ATTEMPTED TO CONTACT PATIENt'S (ROYA GUPTA) @ . HOWEVER, PHONE JUST KEPT RINGING WITH NO ONE ANSWERING. Addendum: 12/01/18 at 1517 by Franny aMrvin RN CM SPOKE WITH PATIENT's DAUGHTER (JULIO) @ AND INFORM HER OF THE DISCHARGE BACK TO [facility]. PATIENT'S DAUGHTER WILL NOTIFY BROTHER.
--- NOTE | 2018-12-01 15:30 | NUR ---
Transfer Care: Report given to Kayla ,patient with transfer order to [facility] today ,bed available.Daughter nellie informed by emily store planner Franny of the transfer.
--- NOTE | 2018-12-01 15:50 | NUR ---
Opening Note received bedside SBAR report from endorsing RN, patient resting in bed, no acute distress noted, respirations even and unlabored on room air, tube feeding stopped at this time pending transfer of patient to SNF, room close to nurses station, educated patient on use of call light and asked to call for assistance, call light in reach, bed in low and locked position, bed alarm on.
[2018-12-01 16:00] VITALS: BP_SYST 99
--- NOTE | 2018-12-01 16:00 | NUR ---
Free water flush free water flush held at this time pending transfer of patient via ambulance to prevent aspiration.
--- NOTE | 2018-12-01 16:10 | NUR ---
Called Report called report to [facility], gave SBAR report to Verito, informed her that grain picker is scheduled for 1700 with medic 1.
[2018-12-01 16:24] VITALS: BP_SYST 99
--- NOTE | 2018-12-01 17:25 | NUR ---
Discharge provided patient with discharge packet and instructions for transfer to SNF, swelling noted at IV site, IV catheter removed, catheter intact, no bleeding, no acute distress noted, respirations even and unlabored on room air, all belongings sent with patient, patient taken via gurney by [facility] ambulance for transfer.
== END 2018-12-01 17:26 | DRG 393 ==
LOC: STU 16:25 → SMU 16:50
PROVIDERS: ADMIT Family Medicine; ATTEND Family Medicine
DX: K94.22 Gastrostomy infection (principal); E43 Unspecified severe protein-calorie malnutrition; N17.0 Acute kidney failure with tubular necrosis; L03.311 Cellulitis of abdominal wall; J44.1 Chronic obstructive pulmonary disease with (acute) exacerbation; Z68.1 Body mass index [BMI] 19.9 or less, adult; E86.0 Dehydration; D64.9 Anemia, unspecified; F03.90 Unspecified dementia, unspecified severity, without behavioral disturbance, psychotic disturbance, mood disturbance, and anxiety; R13.10 Dysphagia, unspecified; B96.5 Pseudomonas (aeruginosa) (mallei) (pseudomallei) as the cause of diseases classified elsewhere; Y83.8 Other surgical procedures as the cause of abnormal reaction of the patient, or of later complication, without mention of misadventure at the time of the procedure; Z87.891 Personal history of nicotine dependence; Y92.89 Other specified places as the place of occurrence of the external cause
CPT/HCPCS: 36415; 71045; 74018; 74240-TC; 80048; 80053; 83690-TC; 85025; 87070-TC; 87075-TC; 87081; 87186-TC; 94640; C9113; J0690; J2185; J2405; J3480; J7050; J7612; Q9963